=== PATIENT | female | born 1980 | race Caucasian/White ===

== ENCOUNTER 2017-06-05 13:51 | Emergency (ER) | payer OTHER ==
[~2017-06-05] VITALS: Ht 162.6 cm; Wt 93.1 kg
[~2017-06-05 13:51] MED LIST: BUSPAR10 MG PO; COMPAZINE10 MG PO; CYMBALTA60 MG PO; FIORICET,ESG1 TABLET PO; KEFLEX500 MG PO; LAMICTAL100 MG PO; LAMICTAL150 M1 PO; LEVOTHYROXINE75 MCG PO; METFORMIN HCL500 MG PO; PYRIDIUM200 MG PO; SEROQUEL100 MG PO; SEROQUEL400 MG PO; SPIRONOLACTONE50 MG PO; ZOFRAN4 MG PO
[2017-06-05] MEDS ORDERED: FLONASE16 G1 BOTH NARES (16:34)
[2017-06-05] MEDS ORDERED: MOTRIN800 MG PO (16:34)
[2017-06-05] MEDS ORDERED: MUCINEX D ER T1 EACH PO (16:34)
[2017-06-05 17:05] VITALS: BP 122/90
== END 2017-06-05 17:00 | disposition home or self-care (01) ==
LOC: EME 13:51
DX: H65.03 Acute serous otitis media, bilateral (principal); J01.90 Acute sinusitis, unspecified; J02.9 Acute pharyngitis, unspecified; Z88.8 Allergy status to other drugs, medicaments and biological substances
CPT/HCPCS: 87651 90; 99281; 99284

== ENCOUNTER 2017-12-08 18:34 | Emergency (ER) | payer OTHER ==
[~2017-12-08] VITALS: Ht 162.6 cm; Wt 87.2 kg
[~2017-12-08 18:34] MED LIST changes: +FLONASE16 G1 BOTH NARES; +MOTRIN800 MG PO; +MUCINEX D ER T1 EACH PO
[2017-12-08 20:29] LABS: HEMATOCRIT 40.6 % (36.0-46.0); HEMOGLOBIN 13.4 G/DL (11.9-15.5); MCH 29.6 PG (29.0-34.0); MCV 89.8 FL (83-99); PLATELET COUNT 306 K/uL (156-360); RED BLOOD COUNT 4.52 M/uL (3.80-5.20)
[2017-12-08 20:39] LABS: ALBUMIN 4.4 g/dL (3.2-4.8); CHLORIDE 101 mEq/L (99-109); POTASSIUM 4.1 mEq/L (3.7-5.4); SODIUM 137 mEq/L (136-147)
[2017-12-08 20:41] LABS: GLUCOSE 101 mg/dL (70-99)
[2017-12-08 20:43] LABS: TOTAL BILIRUBIN 0.4 mg/dL (0.0-1.0)
[2017-12-08 20:45] LABS: ALKALINE PHOSPHATASE 70 IU/L (3-129); CREATININE 1.1 mg/dL (0.6-1.3); GFR ESTIMATE (CALCULATED) > 59 mL/min/
[2017-12-08 20:46] LABS: AST (GOT) 14 IU/L (2-34); UREA NITROGEN (BUN) 8 mg/dL (9-23)
[2017-12-08 20:48] LABS: ALT (GPT) 16 IU/L (3-49)
[2017-12-08 20:50] LABS: TROP-I INTERPRETATION NEGATIVE; TROPONIN-I < 0.01 ng/mL (0.0-0.30)
[2017-12-08 20:57] LABS: QUANTITATIVE HCG < 4.0 MIU/ML
[2017-12-08 21:27] LABS: APPEARANCE CLEAR ((CLEAR)); BILIRUBIN NEGATIVE; BLOOD NEGATIVE; COLOR STRAW ((YELLOW)); GLUCOSE (STRIP) NEGATIVE; KETONES NEGATIVE; LEUKOCYTES TRACE; NITRITE NEGATIVE; PROTEIN (STRIP) NEGATIVE; SPECIFIC GRAVITY 1.003 (1.000-1.030); UROBILINOGEN 0.2 MG/DL (0.2-1.0)
[2017-12-08 21:30] LABS: BACTERIA NONE SEEN /HPF; EPITHELIAL CELLS 1+ /HPF; MUCUS NONE SEEN /LPF; RED BLOOD CELLS 0-5 /HPF (0-5); UCUL ADDED? NO; WHITE BLOOD CELLS 0-5 /HPF (0-5)
[2017-12-09 00:04] LABS: TROP-I INTERPRETATION NEGATIVE; TROPONIN-I < 0.01 ng/mL (0.0-0.30)
[2017-12-09 00:45] VITALS: BP 119/85
== END 2017-12-09 00:46 | disposition home or self-care (01) ==
LOC: EME 18:34
PROVIDERS: Nurse Practitioner Family
DX: R07.9 Chest pain, unspecified (principal); R20.2 Paresthesia of skin; R20.0 Anesthesia of skin; F41.9 Anxiety disorder, unspecified; E03.9 Hypothyroidism, unspecified; E28.2 Polycystic ovarian syndrome; F31.9 Bipolar disorder, unspecified; Z79.84 Long term (current) use of oral hypoglycemic drugs; Z88.8 Allergy status to other drugs, medicaments and biological substances
CPT/HCPCS: 70450; 71046; 80053; 81003; 84484; 84702; 85027; 93005; 99281; 99284